=== PATIENT | male | born 1935 | race Caucasian/White ===

== ENCOUNTER 2018-03-20 10:09 | Inpatient (IN) | payer MEDICARE ==
[~2018-03-20] VITALS: Ht 172.7 cm; Wt 71.2 kg
[~2018-03-20 10:09] MED LIST: CALCCHW25 PO; DONE10TA14 PO; FE FCAP PO; FLEC100 PO; MELO15 PO; MEMA28CA PO; PRIL40CA PO
[2018-03-20 10:13] VITALS: BP 159/91; RESP 15; TEMP 98.2; O2SAT 98
[2018-03-20] MEDS ORDERED: ZYPR15TA PO (10:33)
[2018-03-20] MEDS ORDERED: MEMA28CA PO (10:33)
[2018-03-20] MEDS ORDERED: FLEC1TAB8 PO (10:33)
--- NOTE | 2018-03-20 10:39 | PD ---
HPI Chief Complaint: Fall Time Seen by Provider: 10:30 Travel History International Travel<30 days: No Contact w/Intl Traveler<30days: No Traveled to known affect area: No History of Present Illness HPI This patient complains of left hip pain. 2 hours ago he had a fall at home. He did not strike his head. He could not get up. He has dementia and history is provided by his . She reports that he is a DNR patient. He typically ambulates without assistive device. Symptoms are worsened by movement of the left leg. No alleviating factors. Symptom severity is moderate. PFSH Past Medical History Atrial Fibrillation: Yes Heart Rhythm Problems: Yes (ATRIL FLUTTER) Cancer: No Cardiovascular Problems: Yes (ATRIAL FIB) High Cholesterol: Yes Dementia: Yes Diabetes: No Diminished Hearing: Yes Endocrine: No Glaucoma: No Genitourinary: Yes (HX BPH) Hepatitis: No Hiatal Hernia: No Hypertension: No Immune Disorder: No Musculoskeletal: Yes (ARTHRITIS) Psychiatric: No Reproductive: No Respiratory: No Thyroid Disease: No Past Surgical History Abdominal Surgery: Yes (INGUINAL HERNIA REPAIR; 04/22 [facility]) Body Medical Devices: NONE Joint Replacement: Yes (left knee) Pacemaker: No Other Surgery: Yes Social History Alcohol Use: No (2 DRINKS PER DAY FORMER ) Tobacco Use: No Substance Use: No Allergies-Medications (Allergen,Severity, Reaction): Coded Allergies: ciprofloxacin (Unverified Allergy, Severe, RASH, 03/20/18) Reported Meds & Prescriptions Reported Meds & Active Scripts Active Reported Flecainide (Flecainide Acetate) 50 Mg Tab 10 Mg PO DAILY Zyprexa (Olanzapine) 15 Mg Tab 15 Mg PO DAILY Namenda Xr (Memantine) 28 Mg Caper 28 Mg PO DAILY Review of Systems General / Constitutional: No: Fever Eyes: No: Visual changes HENT: No: Headaches Cardiovascular: No: Chest Pain or Discomfort Respiratory: No: Shortness of Breath Gastrointestinal: No: Abdominal Pain Genitourinary: No: Dysuria Musculoskeletal: Positive: Arthralgias, Limited ROM, Pain Skin: No Rash Neurologic: No: Weakness Psychiatric: No: Depression Endocrine: No: Polydipsia Hematologic/Lymphatic: No: Easy Bruising Physical Exam Narrative GENERAL: Well-nourished, well-developed patient in no apparent distress. SKIN: Focused skin assessment reveals no rash and nodules. Skin is Warm and dry. HEAD: Atraumatic. Normocephalic. EYES: Pupils equal and round. No scleral icterus. No injection or drainage. ENT: No nasal bleeding or discharge. Mucous membranes pink and moist. NECK: Trachea midline. No JVD. No midline tenderness CARDIOVASCULAR: Regular rate and rhythm. No murmur appreciated. RESPIRATORY: No accessory muscle use. Clear to auscultation. Breath sounds equal bilaterally. GASTROINTESTINAL: Abdomen soft, non-tender, nondistended. Hepatic and splenic margins not palpable. MUSCULOSKELETAL: Left leg is shortened and externally rotated. Cannot straighten it fully. He is tender in the left proximal femur. No clubbing. No cyanosis. No edema. NEUROLOGICAL: Awake and alert. No obvious cranial nerve deficits. Motor grossly within normal limits. Normal speech. PSYCHIATRIC: Appropriate mood and affect; insight and judgment reduced from dementia . Data Data Last Documented VS Vital Signs Date Time Temp Pulse Resp B/P (MAP) Pulse Ox O2 Delivery O2 Flow Rate FiO2 03/20/18 14:04 70 18 126/91 (103) 98 Room Air 03/20/18 10:13 98.2 Orders Orders Electrocardiogram (03/20/18 10:35) Complete Blood Count With Diff (03/20/18 10:35) Comprehensive Metabolic Panel (03/20/18 10:35) Prothrombin Time / Inr (Pt) (03/20/18 10:35) Act Partial Throm Time (Ptt) (03/20/18 10:35) Chest, Single Ap (03/20/18 10:35) Femur (Ap & Lat/2vws) (03/20/18 10:35) Pelvis, Ap Only (Routine) (03/20/18 10:35) Iv Access Insert/Monitor (03/20/18 10:35) Oximetry (03/20/18 10:35) Ecg Monitoring (03/20/18 10:35) Sodium Chloride 0.9% Flush (Ns Flush) (03/20/18 10:45) Admit To Inpatient (03/20/18 13:51) Code Status (03/20/18 13:51) Vital Signs (Adult) Q4H (03/20/18 13:51) Activity Bed Rest (03/20/18 13:51) Diet Heart Healthy (03/20/18 Lunch) Basic Metabolic Panel (Bmp) (03/21/18 06:00) Complete Blood Count With Diff (03/21/18 06:00) Scd Bilateral/Knee High MAT.QSHIFT (03/20/18 13:51) Sodium Chlor 0.9% 1000 Ml Inj (Ns 1000 M (03/20/18 15:00) Ceftriaxone Inj (Rocephin Inj) (03/20/18 15:00) Azithromycin Inj (Zithromax Inj) (03/20/18 15:00) Azithromycin Inj (Zithromax Inj) (03/21/18 15:00) Albuterol-Ipratropium Neb (Duoneb Neb) (03/20/18 14:15) Flecainide (Tambocor) (03/21/18 09:00) Olanzapine (Zyprexa) (03/21/18 09:00) (Nf) Memantine Er (Namenda Xr) (03/21/18 09:00) Troponin I (03/20/18 14:12) Npo After Midnight W/ Po Meds (03/20/18 Dinner) Consult Orthopedic (03/20/18 ) Acetaminophen (Tylenol) (03/20/18 14:15) Acetamin-Hydrocod 325-5 Mg (Tumtum 5-325 (03/20/18 14:15) Acetamin-Hydrocod 325-10 Mg (Tumtum 10-32 (03/20/18 14:15) Morphine Inj (Morphine Inj) (03/20/18 14:15) Naloxone Inj (Narcan Inj) (03/20/18 14:15) Docusate Sodium-Senna (Gayla-Colace) (03/20/18 21:00) Magnesium Hydroxide Liq (Milk Of Magnesi (03/20/18 14:15) Sennosides (Senokot) (03/20/18 14:15) Bisacodyl Supp (Dulcolax Supp) (03/20/18 14:15) Lactulose Liq (Lactulose Liq) (03/20/18 14:15) Labs Laboratory Tests Test 03/20/18 11:20 White Blood Count 13.4 TH/MM3 Red Blood Count 4.75 MIL/MM3 Hemoglobin 15.2 GM/DL Hematocrit 45.3 % Mean Corpuscular Volume 95.4 FL Mean Corpuscular Hemoglobin 32.0 PG Mean Corpuscular Hemoglobin Concent 33.6 % Red Cell Distribution Width 14.9 % Platelet Count 294 TH/MM3 Mean Platelet Volume 8.7 FL Neutrophils (%) (Auto) 83.0 % Lymphocytes (%) (Auto) 6.5 % Monocytes (%) (Auto) 10.3 % Eosinophils (%) (Auto) 0.0 % Basophils (%) (Auto) 0.2 % Neutrophils # (Auto) 11.1 TH/MM3 Lymphocytes # (Auto) 0.9 TH/MM3 Monocytes # (Auto) 1.4 TH/MM3 Eosinophils # (Auto) 0.0 TH/MM3 Basophils # (Auto) 0.0 TH/MM3 CBC Comment DIFF FINAL Differential Comment Prothrombin Time 11.4 SEC Prothromb Time International Ratio 1.1 RATIO Activated Partial Thromboplast Time 27.9 SEC Blood Urea Nitrogen 28 MG/DL Creatinine 1.51 MG/DL Random Glucose 113 MG/DL Total Protein 7.1 GM/DL Albumin 3.5 GM/DL Calcium Level 8.7 MG/DL Alkaline Phosphatase 115 U/L Aspartate Amino Transf (AST/SGOT) 38 U/L Alanine Aminotransferase (ALT/SGPT) 25 U/L Total Bilirubin 1.6 MG/DL Sodium Level 138 MEQ/L Potassium Level 4.8 MEQ/L Chloride Level 108 MEQ/L Carbon Dioxide Level 18.9 MEQ/L Anion Gap 11 MEQ/L Estimat Glomerular Filtration Rate 45 ML/MIN MDM Medical Decision Making Medical Screen Exam Complete: Yes Emergency Medical Condition: Yes Medical Record Reviewed: Yes Differential Diagnosis Hip fracture, pelvic fracture, contusion Narrative Course I have reviewed the patient's electronic medical record. I presume from examining him he has a left hip fracture. I have ordered a workup for that. IV placed and labs sent I reviewed his femur and pelvis x-rays which reveal a left-sided femoral neck fracture Lab studies reviewed Patient's confirms that he is a DNR patient However he typically ambulates without assistive device and now has a fractured hip I spoke with orthopedist as well as hospitalist. Patient will be admitted for left hip fracture Diagnosis Primary Impression: Fracture of hip, left, closed Qualified Codes: S72.002A - Fracture of unspecified part of neck of left femur , initial encounter for closed fracture Additional Impressions: Dementia Qualified Codes: F03.90 - Unspecified dementia without behavioral disturbance Do not resuscitate Admitting Information Admitting Physician Requests: it Davion Kate MD Mar 20, 2018 10:39
[2018-03-20] MEDS ORDERED: SODIUM CHLORIDE 0.9% FLUSH 10 ML FLUSH IVF PRN (10:45)
[2018-03-20 11:26] VITALS: BP 157/82; PULSE 100; RESP 20; O2SAT 100; O2SAT 98
[2018-03-20 11:48] LABS: AUTOMATED NEUTROPHIL # 11.1 TH/MM3 (1.8-7.7); BASOPHIL % 0.2 % (0.0-2.0); HEMATOCRIT 45.3 % (39.0-51.0); HEMOGLOBIN 15.2 GM/DL (13.0-17.0); LYMPH % 6.5 % (9.0-44.0); LYMPHOCYTE # 0.9 TH/MM3 (1.0-4.8); MEAN CELL VOLUME 95.4 FL (80.0-100.0); MEAN CORPUSCULAR HGB CONC 33.6 % (32.0-36.0); MEAN PLATELET VOLUME 8.7 FL (7.0-11.0); MONO % 10.3 % (0.0-8.0); MONOCYTE # 1.4 TH/MM3 (0-0.9); PLATELET COUNT 294 TH/MM3 (150-450); RED BLOOD COUNT 4.75 MIL/MM3 (4.50-5.90); RED CELL DISTRIBUTION WIDTH 14.9 % (11.6-17.2); WHITE BLOOD COUNT 13.4 TH/MM3 (4.0-11.0)
--- NOTE | 2018-03-20 12:01 | RADRPT ---
EXAM DATE: 03/20/2018 11:39 AM EDT AGE/SEX: 82 years / Male INDICATIONS: pt fell today. CLINICAL DATA: This is the patient's initial encounter. Patient reports that signs and symptoms have been present for 1 day and indicates a pain score of Nonresponsive. MEDICAL/SURGICAL HISTORY: . dementia . left knee replacement COMPARISON: [facility] [place], FEMUR LEFT (AP & LAT/2VWS), 03/20/2018. . FINDINGS there is a complete mid cervical femoral neck fracture on the left discussed on the patient' s left femur radiographs. There is osteopenia. CONCLUSION: Complete mid cervical left femoral neck fracture. Electronically signed by: Nnamdi Monterroso MD 03/20/2018 11:59 AM EDT
[2018-03-20 12:02] LABS: INTERNATIONAL NORMALIZED RATIO 1.1 RATIO; PROTHROMBIN TIME - PATIENT 11.4 SEC (9.8-11.6)
--- NOTE | 2018-03-20 12:02 | RADRPT ---
EXAM DATE: 03/20/2018 11:37 AM EDT AGE/SEX: 82 years / Male INDICATIONS: Pt fell today CLINICAL DATA: This is the patient's initial encounter. Patient reports that signs and symptoms have been present for 1 day and indicates a pain score of Nonresponsive. MEDICAL/SURGICAL HISTORY: . dementia . left knee replacement COMPARISON: No prior exams available for comparison. FINDINGS: There is a complete mid cervical left femoral neck fracture. CONCLUSION: Complete left femoral neck fracture. Electronically signed by: Nnamdi Monterroso MD 03/20/2018 12:00 PM EDT
--- NOTE | 2018-03-20 12:04 | RADRPT ---
EXAM DATE: 03/20/2018 11:25 AM EDT AGE/SEX: 82 years / Male INDICATIONS: Patient fell today. CLINICAL DATA: This is the patient's initial encounter. Patient reports that signs and symptoms have been present for 1 day and indicates a pain score of Nonresponsive. MEDICAL/SURGICAL HISTORY: . dementia . left knee replacement. COMPARISON: No prior exams available for comparison. FINDINGS: AP view of the chest demonstrates a normal-sized cardiac silhouette with calcification of the aorta. EKG lines overlie the patient. There is slight hazy opacity at the left lung base. No pleural effusio n or pneumothorax is identified. The bones and soft tissues demonstrate no acute abnormality. There i s abnormal elevation of the right humeral head in relationship to the acromion. CONCLUSION: 1. Mild opacity at the left lung base could represent atelectasis or consolidation. 2. No acute osseous abnormality is identified. 3. Abnormal elevation of the right humeral head indicating a chronic rotator cuff tear. Electronically signed by: Steve Vega MD 03/20/2018 12:02 PM EDT
[2018-03-20 12:17] LABS: ALKALINE PHOSPHATASE 115 U/L (45-117); TOTAL BILIRUBIN ADULT 1.6 MG/DL (0.2-1.0); TOTAL PROTEIN 7.1 GM/DL (6.4-8.2)
[2018-03-20 12:19] LABS: ALBUMIN 3.5 GM/DL (3.4-5.0); ALT (GPT) 25 U/L (12-78); AST (GOT) 38 U/L (15-37); BICARBONATE 18.9 MEQ/L (21.0-32.0); BLOOD UREA NITROGEN 28 MG/DL (7-18); CALCIUM 8.7 MG/DL (8.5-10.1); CHLORIDE 108 MEQ/L (98-107); CREATININE 1.51 MG/DL (0.60-1.30); GLOMERULAR FILTRATION RATE 45 ML/MIN (>89); GLUCOSE,RANDOM 113 MG/DL (74-106); SODIUM (NA) 138 MEQ/L (136-145)
[2018-03-20 13:05] VITALS: BP 106/59; PULSE 70; RESP 18; O2SAT 98
--- NOTE | 2018-03-20 13:52 | HHI.HP ---
[facility] Primary Care Physician Carlos Parker, DO Admission Diagnosis Diagnoses: Chief Complaint: Fall, left hip pain Travel History International Travel<30 Days: No Contact w/Intl Traveler <30 Da: No Traveled to Known Affected Are: No History of Present Illness This is an 82-year-old male with history of atrial fibrillation and dementia presenting with left hip pain after a fall. Patient is a very poor historian. According to the , the patient was walking, tripped and fell. He did not hit his head but hit his left side of the body. Since then, he was unable to ambulate and complaining of pain in the left hip. Left hip x-ray showed left humeral neck fracture. Per , she is not sure if she would want him to get surgery. She also mentioned that the patient is DNR/DNI. Review of Systems ROS Limitations: Poor Historian Past Family Social History Past Medical History Dementia Atrial fibrillation Arthritis BPH Past Surgical History Inguinal hernia repair Left knee replacement Cholecystectomy Allergies: Coded Allergies: ciprofloxacin (Unverified Allergy, Severe, RASH, 03/20/18) Family History Poor historian Social History 2 drinks per day Former smoker Physical Exam Vital Signs Vital Signs Date Time Temp Pulse Resp B/P (MAP) Pulse Ox O2 Delivery O2 Flow Rate FiO2 03/20/18 13:05 70 18 106/59 (75) 98 Room Air 03/20/18 11:26 20 100 Room Air 03/20/18 11:26 100 20 157/82 (107) 98 Room Air 03/20/18 10:13 98.2 15 159/91 (113) 98 03/20/18 10:13 107 16 97 Room Air Physical Exam Not in distress, confused. PERRL, pink conjunctiva without injection, anicteric Nose without bleeding Supple neck Normal rate, irregular rhythm, no murmurs appreciated Clear to auscultation, poor effort. Normal bowel sounds, soft, non-tender, nondistended, no guarding. Extremities without clubbing, cyanosis, or edema. Externally rotated left hip. Alert and awake, not oriented, moves extremities. Laboratory Laboratory Tests Test 03/20/18 11:20 White Blood Count 13.4 Red Blood Count 4.75 Hemoglobin 15.2 Hematocrit 45.3 Mean Corpuscular Volume 95.4 Mean Corpuscular Hemoglobin 32.0 Mean Corpuscular Hemoglobin Concent 33.6 Red Cell Distribution Width 14.9 Platelet Count 294 Mean Platelet Volume 8.7 Neutrophils (%) (Auto) 83.0 Lymphocytes (%) (Auto) 6.5 Monocytes (%) (Auto) 10.3 Eosinophils (%) (Auto) 0.0 Basophils (%) (Auto) 0.2 Neutrophils # (Auto) 11.1 Lymphocytes # (Auto) 0.9 Monocytes # (Auto) 1.4 Eosinophils # (Auto) 0.0 Basophils # (Auto) 0.0 CBC Comment DIFF FINAL Differential Comment Prothrombin Time 11.4 Prothromb Time International Ratio 1.1 Activated Partial Thromboplast Time 27.9 Blood Urea Nitrogen 28 Creatinine 1.51 Random Glucose 113 Total Protein 7.1 Albumin 3.5 Calcium Level 8.7 Alkaline Phosphatase 115 Aspartate Amino Transf (AST/SGOT) 38 Alanine Aminotransferase (ALT/SGPT) 25 Total Bilirubin 1.6 Sodium Level 138 Potassium Level 4.8 Chloride Level 108 Carbon Dioxide Level 18.9 Anion Gap 11 Estimat Glomerular Filtration Rate 45 Result Diagram: 03/20/18 1120 03/20/18 1120 Imaging Last Impressions Pelvis X-Ray 03/20/18 1035 Signed Impressions: CONCLUSION: Complete mid cervical left femoral neck fracture. Femur X-Ray 03/20/18 1035 Signed Impressions: CONCLUSION: Complete left femoral neck fracture. Chest X-Ray 03/20/18 1035 Signed Impressions: CONCLUSION: 1. Mild opacity at the left lung base could represent atelectasis or consolida tion. 2. No acute osseous abnormality is identified. 3. 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 Caprini VTE Risk Assessment Caprini VTE Risk Assessment: Mod/High Risk (score >= 2) VTE Pharm Contraindication: Documented Caprini Risk Assessment Model Point Value = 1 Point Value = 2 Point Value = 3 Point Value = 5 Age 41-60 Minor surgery BMI > 25 kg/m2 Swollen legs Varicose veins or History of unexplained or recurrent spontaneous Oral contraceptives or hormone replacement Sepsis (< 1 month) Serious lung disease, including pneumonia (< 1 month) Abnormal pulmonary function Acute myocardial infarction Congestive heart failure (< 1 month) History of inflammatory bowel disease Medical patient at bed rest Age 61-74 Arthroscopic surgery Major open surgery (> 45 min) Laparoscopic surgery (> 45 min) Malignancy Confined to bed (> 72 hours) Immobilizing plaster cast Central venous access Age >= 75 History of VTE Family history of VTE Factor V Leiden Prothrombin [id number] Lupus anticoagulant Anticardiolipin antibodies Elevated serum homocysteine Heparin-induced thrombocytopenia Other congenital or acquired thrombophilia Stroke (< 1 month) Elective arthroplasty Hip, pelvis, or leg fracture Acute spinal cord injury (< 1 month) Prophylaxis Regimen Total Risk Factor Score Risk Level Prophylaxis Regimen 0-1 Low Early ambulation 2 Moderate Order ONE of the following: *Sequential Compression Device (SCD) *Heparin 5000 units SQ BID 3-4 Higher Order ONE of the following medications: *Heparin 5000 units SQ TID *Enoxaparin/Lovenox 40 mg SQ daily (WT < 150 kg, CrCl > 30 mL/min) *Enoxaparin/Lovenox 30 mg SQ daily (WT < 150 kg, CrCl > 10-29 mL/min) *Enoxaparin/Lovenox 30 mg SQ BID (WT < 150 kg, CrCl > 30 mL/min) AND/OR *Sequential Compression Device (SCD) 5 or more Highest Order ONE of the following medications: *Heparin 5000 units SQ TID (Preferred with Epidurals) *Enoxaparin/Lovenox 40 mg SQ daily (WT < 150 kg, CrCl > 30 mL/min) *Enoxaparin/Lovenox 30 mg SQ daily (WT < 150 kg, CrCl > 10-29 mL/min) *Enoxaparin/Lovenox 30 mg SQ BID (WT < 150 kg, CrCl > 30 mL/min) AND *Sequential Compression Device (SCD) Assessment and Plan Assessment and Plan This is an 82-year-old male with history of atrial fibrillation and dementia presenting with a left hip fracture Left femoral neck fracture-patient's is thinking if she would like to consent to surgery, consult orthopedics for surgery, n.p.o. at midnight. Start pain control with bowel regimen Atrial fibrillation-restart flecainide, EKG showed atrial fibrillation, rate controlled. Check troponin, if negative, would likely clear for surgery. Dementia-restart Zyprexa Namenda Rule out community-acquired pneumonia-patient has leukocytosis and beginning opacity in the left lung base, start ceftriaxone and azithromycin for now. Monitor respiratory status. Dehydration-start IVF, creatinine is 1.51. It was normal in 2016, recheck BMP tomorrow. DVT prophylaxis: SCDs for now, start pharmacological prophylaxis after surgery DNR/DNI per . Physician Certification 2 Midnight Certification Type: Admission for Inpatient Services Order for Inpatient Services The services are ordered in accordance with Medicare regulations or non- Medicare payer requirements, as applicable. In the case of services not specified as inpatient-only, they are appropriately provided as inpatient services in accordance with the 2-midnight benchmark. Estimated LOS (days): 2 days is the estimated time the patient will need to remain in the hospital, assuming treatment plan goals are met and no additional complications. Post-Hospital Plan: [facility] Reji Coates MD Mar 20, 2018 13:52
[2018-03-20 14:04] VITALS: BP 126/91; PULSE 70; RESP 18; O2SAT 98
[2018-03-20] MEDS ORDERED: ACETAMINOPHEN 325 MG TAB PO PRN (14:15)
[2018-03-20] MEDS ORDERED: RESP: ALBUTEROL 2.5 MG/IPRATROPIUM 0.5 MG NEB (PRN) NEB (14:15)
[2018-03-20] MEDS ORDERED: NALOXONE HCL 0.4 MG/ML AMP IV PUSH PRN (14:15)
[2018-03-20] MEDS ORDERED: SENNOSIDES 8.6 MG TAB PO PRN (14:15)
[2018-03-20] MEDS ORDERED: BISACODYL 10 MG SUPP RECTAL PRN (14:15)
[2018-03-20] MEDS ORDERED: MAGNESIUM HYDROXIDE SUSP 30 ML CUP PO PRN (14:15)
[2018-03-20] MEDS ORDERED: MORPHINE SULFATE 2 MG/ML SYRINGE IV PUSH PRN (14:15)
[2018-03-20] MEDS ORDERED: ACETAMINOPHEN/HYDROcodone 325 MG/5 MG TAB PO PRN (14:15)
[2018-03-20] MEDS ORDERED: LACTULOSE SYRUP 20 GM/30 ML CUP PO PRN (14:15)
[2018-03-20] MEDS ORDERED: AZITHROMYCIN INJ 500 MG in SODIUM CHLOR 0.9% 250 ML INJ 250 ML IV ONE (15:00)
[2018-03-20 15:25] VITALS: BP 130/88; PULSE 92; RESP 18; O2SAT 98
[2018-03-20] MEDS: SODIUM CHLOR 0.9% 1000 ML INJ 1,000 ML IV SCH (15:28)
[2018-03-20] MEDS: cefTRIAXone INJ 1,000 MG in SODIUM CHLORIDE 0.9% INJ 100 ML IV SCH (15:29)
[2018-03-20] MEDS: DOCUSATE SODIUM 50 MG/SENNA 8.6 MG TAB PO SCH (19:29)
[2018-03-20] MEDS: MEMANTINE HCL 10 MG TAB PO SCH (19:30)
[2018-03-20] MEDS: ACETAMINOPHEN/HYDROcodone 325 MG/10 MG TAB PO PRN (19:30)
[2018-03-20 20:00] VITALS: BP 114/71; PULSE 82; RESP 16; TEMP 97.5; O2SAT 94
[2018-03-21] VITALS: BP 151/88; PULSE 118; RESP 18; TEMP 97.5; O2SAT 96
[2018-03-21] MEDS: ACETAMINOPHEN/HYDROcodone 325 MG/10 MG TAB PO PRN (00:23)
[2018-03-21] MEDS ORDERED: LORazepam 2 MG/ML VIAL IV PUSH ONE (01:00)
[2018-03-21] MEDS ORDERED: SODIUM CHLORID 0.9% 500 ML IV PRN (02:00)
[2018-03-21] MEDS ORDERED: METOPROLOL TARTRATE 25 MG TAB PO PRN (02:00)
[2018-03-21] MEDS ORDERED: POVIDONE IODINE 5% (ANTISEPSIS KIT) 4 APPLICATIONS EACH NARE PRN (02:00)
[2018-03-21] MEDS ORDERED: LACTATED RINGER'S 1000 ML IV PRN (02:00)
[2018-03-21] MEDS ORDERED: CHLORHEXIDINE GLUCONATE 2 % 1 PACK (2 CLOTHS) TOPICAL PRN (02:00)
[2018-03-21] MEDS: SODIUM CHLOR 0.9% 1000 ML INJ 1,000 ML IV SCH ×2 (02:55→14:29)
[2018-03-21 04:00] VITALS: BP 116/74; PULSE 95; RESP 18; TEMP 97.9; O2SAT 96
[2018-03-21 08:00] VITALS: BP 108/84; PULSE 101; RESP 19; TEMP 97.3; O2SAT 96
[2018-03-21 08:00] LABS: AUTOMATED NEUTROPHIL # 8.1 TH/MM3 (1.8-7.7); BASOPHIL % 0.4 % (0.0-2.0); EOSINOPHIL # 0.1 TH/MM3 (0-0.4); EOSINOPHIL % 0.7 % (0.0-4.0); HEMATOCRIT 43.2 % (39.0-51.0); HEMOGLOBIN 14.4 GM/DL (13.0-17.0); LYMPH % 11.2 % (9.0-44.0); LYMPHOCYTE # 1.2 TH/MM3 (1.0-4.8); MEAN CELL VOLUME 95.5 FL (80.0-100.0); MEAN CORPUSCULAR HEMOGLOBIN 31.9 PG (27.0-34.0); MEAN CORPUSCULAR HGB CONC 33.4 % (32.0-36.0); MEAN PLATELET VOLUME 8.8 FL (7.0-11.0); MONO % 12.1 % (0.0-8.0); MONOCYTE # 1.3 TH/MM3 (0-0.9); NEUT % 75.6 % (16.0-70.0); PLATELET COUNT 268 TH/MM3 (150-450); RED BLOOD COUNT 4.52 MIL/MM3 (4.50-5.90); RED CELL DISTRIBUTION WIDTH 14.7 % (11.6-17.2); WHITE BLOOD COUNT 10.7 TH/MM3 (4.0-11.0)
[2018-03-21] MEDS: MEMANTINE HCL 10 MG TAB PO SCH ×2 (08:10→20:04)
[2018-03-21] MEDS: DOCUSATE SODIUM 50 MG/SENNA 8.6 MG TAB PO SCH ×2 (08:10→20:05)
[2018-03-21 08:16] LABS: BICARBONATE 20.5 MEQ/L (21.0-32.0); CALCIUM 8.4 MG/DL (8.5-10.1); CREATININE 1.25 MG/DL (0.60-1.30)
[2018-03-21] MEDS ORDERED: FLECAINIDE ACETATE 100 MG TAB PO SCH (09:00)
[2018-03-21] MEDS ORDERED: NON-FORMULARY DRUG (Memantine Er (Namenda Xr) 28 MG) PO SCH (09:00)
[2018-03-21 12:00] VITALS: BP 158/88; PULSE 104; RESP 20; TEMP 97.5; O2SAT 96
--- NOTE | 2018-03-21 13:51 | PD.CONS ---
Consult Service Palliative Care Consult Requested By DORIAN Garcia. Primary Care Physician Carlos Parker, DO Reason for Consultation a. To assist with evaluation and management of symptoms including: Pain, debility. b. To assist medical decision maker(s) with: better understanding of current medical conditions; weighing benefits/burdens of medical treatment options; making medical treatment decisions. . HPI History of Present Illness Mr. Ba is an 82-year-old male with a medical history significant for dementia, atrial fibrillation, osteoarthritis and BPH. Patient presented to the ED on 03/20/18 for evaluation of left leg pain secondary to mechanical fall at home. Pelvis and femur x-ray revealed complete mid cervical left femoral neck fracture. Chest x-ray revealed mild opacity of the left lung base which could represent atelectasis or consolidation. Laboratory workup revealing WBC 13.4, Hgb 15.2. BUN/creatinine 28/1.51. Patient was admitted for further monitoring and management. Orthopedic surgeon was consulted, however, was reported to be unsure regarding surgical interventions given patient's dementia. Politic care has been consulted for further clarifications of goals of care. Patient was seen in medical floor, sleeping in bed in no acute distress. Did not awake during physical assessment, appears comfortable. Dual visit with MARION Florentino. Met with patient's Zoey and daughter Tara. In this first visit, reviewed the role of palliative care in advanced illness in regards to symptom management as well as support surrounding goals of care and advance care planning. and daughter receptive to visit. Reviewed patient's past medical history, psychosocial history, events leading to this hospitalization, clinical course and current medical management. Family reports that patient was originally diagnosed with dementia approximately 17 years ago. Showing some progressive decline, worsening within the past year. Patient with shuffle gait, frequent falls. Neurology following , likely Lewy body dementia. Family reports that patient has been having a poor quality of life within the past year secondary to worsening dementia. Limited speech, needs are anticipated. Family declining surgical intervention. Hospice philosophy and benefits introduced. Family electing to transition patient to comfort directed care with hospice, considering discharge to hospice care center for pain/symptom management. Ongoing emotional support and active listening provided. Case discussed with bedside nurse and charge nurse. . Function/Cognitive Trajectory Patient residing in private home with . Dementia at baseline. Ambulating without assistive device, however, shuffled gait with multiple recent falls. Limited speech, needs are anticipated. . Review of Systems ROS Limitations: Clinical Condition, Poor Historian Constitutional: COMPLAINS OF: Pain, DENIES: Fatigue, Fever Eyes: DENIES: Eye inflammation Ears, nose, mouth, throat: DENIES: Running Nose, Epistaxis Respiratory: DENIES: Shortness of breath Cardiovascular: DENIES: Lower Extremity Edema Gastrointestinal: DENIES: Black stools, Bloody stools, Diarrhea Musculoskeletal: COMPLAINS OF: Decreased range of motion Integumentary: DENIES: Pruritus, Rash Hematologic/Lymphatics: DENIES: Bruising Immunologic/Allergic: DENIES: Eczema Neurologic: DENIES: Seizures, Tremor Psychiatric: COMPLAINS OF: Confusion Other ROS: Limited ROS secondary to patient's baseline dementia, clinical condition. ROS obtained from medical records and clinical observation. . Past Family Social History Coded Allergies: ciprofloxacin (Unverified Allergy, Severe, RASH, 03/20/18) Past Medical History Dementia Atrial fibrillation Arthritis BPH . Past Surgical History Inguinal hernia repair Left knee replacement Cholecystectomy . Reported Medications Flecainide (Flecainide Acetate) 50 Mg Tab 10 Mg PO DAILY Zyprexa (Olanzapine) 15 Mg Tab 15 Mg PO DAILY Namenda Xr (Memantine) 28 Mg Caper 28 Mg PO DAILY . Current Medications Medications (Trade) Dose Ordered Sig/Waldemar Route Start Time Stop Time Status Last Admin (NS Flush) 2 ml UNSCH PRN IVF 03/20/18 10:45 Sodium Chloride 1,000 ml @ 84 mls/hr [id number] IV 03/20/18 15:00 03/20/18 15:28 Ceftriaxone Sodium 1000 mg/ Sodium Chloride 100 ml @ 200 mls/hr Q24H IV 03/20/18 15:00 03/20/18 15:29 Azithromycin 250 mg/Sodium Chloride 250 ml @ 250 mls/hr Q24H IV 03/21/18 15:00 (Duoneb Neb) 1 ampule Q4HR NEB PRN NEB 03/20/18 14:15 (Tambocor) 10 mg DAILY PO 03/21/18 09:00 UNV (ZyPREXA) 15 mg DAILY PO 03/21/18 09:00 03/21/18 08:10 (Tylenol) 650 mg Q6H PRN PO 03/20/18 14:15 (Leeds 5-325 Mg) 1 tab Q4H PRN PO 03/20/18 14:15 (Leeds 10-325 Mg) 1 tab Q4H PRN PO 03/20/18 14:15 03/21/18 00:23 (Morphine Inj) 4 mg Q3H PRN IV PUSH 03/20/18 14:15 (Narcan Inj) 0.4 mg UNSCH PRN IV PUSH 03/20/18 14:15 (Gayla-Colace) 1 tab BID PO 03/20/18 21:00 03/21/18 08:10 (Milk Of Magnesia Liq) 30 ml Q12H PRN PO 03/20/18 14:15 (Senokot) 17.2 mg Q12H PRN PO 03/20/18 14:15 (Dulcolax Supp) 10 mg DAILY PRN RECTAL 03/20/18 14:15 (Lactulose Liq) 30 ml DAILY PRN PO 03/20/18 14:15 (Namenda) 10 mg BID PO 03/20/18 21:00 03/21/18 08:10 Lactated Ringer's 1,000 ml @ 30 mls/hr Q24H PRN IV 03/21/18 02:00 03/24/18 01:59 Sodium Chloride 500 ml @ 30 mls/hr [id number] PRN IV 03/21/18 02:00 03/24/18 01:59 (Lopressor) 25 mg DEPARTMENT SECRETARY PRN PO 03/21/18 02:00 03/24/18 01:59 (Betadine 5% Antisepsis Kit) 1 applic DEPARTMENT SECRETARY PRN EACH NARE 03/21/18 02:00 03/24/18 01:59 (Chlorhexidine 2% Cloth) 3 pack DEPARTMENT SECRETARY PRN TOPICAL 03/21/18 02:00 03/24/18 01:59 Family History Patient has 1 daughter who is alive and well. . Substance Use Tobacco: Former smoker. Alcohol: None. Prescription med abuse: None. Illicits: None. . Psychosocial History Patient originally from [facility]. Has been in [place] for 18 years. for the past 62 years. 4 children. 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 . Spiritual/Cultural Factors No caodaism affiliation. . Living Will: Completed, but not made available Health Care Surrogate: Completed, but not made available Health Care Surrogate(s): Family reports that advance directives have been completed naming Zoey Ba as healthcare surrogate decision maker. . Family/friends goals: Comfort directed care with hospice. . Ethical and Legal Issues No ethical legal issues identified. . Physical Exam Vital Signs Date Time Temp Pulse Resp B/P (MAP) Pulse Ox O2 Delivery O2 Flow Rate FiO2 03/21/18 08:00 97.3 101 19 108/84 (92) 96 03/21/18 04:00 97.9 95 18 116/74 (88) 96 03/21/18 00:00 97.5 118 18 151/88 (109) 96 03/20/18 20:00 97.5 82 16 114/71 (85) 94 03/20/18 16:30 03/20/18 15:25 92 18 130/88 (102) 98 Room Air 03/20/18 14:04 70 18 126/91 (103) 98 Room Air Exam CONSTITUTIONAL/GENERAL: This is an adequately nourished patient, in no apparent distress. Sleeping. TUBES/LINES/DRAINS: PIV. SKIN: No jaundice, rashes, or lesions. No wounds seen anteriorly. Skin temperature appropriate. Not diaphoretic. HEAD: Atraumatic. Normocephalic. EYES: Eyes closed, did not force open for exam. ENT: Nose without bleeding or purulent drainage. Moist oral mucosa. NECK: Trachea midline. Supple. CARDIOVASCULAR: Irregular rate and rhythm without murmurs, gallops, or rubs. No JVD. Peripheral pulses symmetric. RESPIRATORY/CHEST: Symmetric, unlabored respirations. Clear to auscultation. Breath sounds equal bilaterally. No wheezes, rales, or rhonchi. GASTROINTESTINAL: Abdomen soft, non-tender, nondistended. No guarding. Bowel sounds present. GENITOURINARY: Without palpable bladder distension. MUSCULOSKELETAL: Extremities without clubbing, cyanosis, or edema. NEUROLOGICAL: Sleeping, did not awake for exam. PSYCHIATRIC: Unable to evaluate given the above. . Diagnostic Tests Laboratory Laboratory Tests Test 03/20/18 11:20 03/20/18 14:53 03/21/18 06:39 White Blood Count 13.4 TH/MM3 (4.0-11.0) 10.7 TH/MM3 (4.0-11.0) Red Blood Count 4.75 MIL/MM3 (4.50-5.90) 4.52 MIL/MM3 (4.50-5.90) Hemoglobin 15.2 GM/DL (13.0-17.0) 14.4 GM/DL (13.0-17.0) Hematocrit 45.3 % (39.0-51.0) 43.2 % (39.0-51.0) Mean Corpuscular Volume 95.4 FL (80.0-100.0) 95.5 FL (80.0-100.0) Mean Corpuscular Hemoglobin 32.0 PG (27.0-34.0) 31.9 PG (27.0-34.0) Mean Corpuscular Hemoglobin Concent 33.6 % (32.0-36.0) 33.4 % (32.0-36.0) Red Cell Distribution Width 14.9 % (11.6-17.2) 14.7 % (11.6-17.2) Platelet Count 294 TH/MM3 (150-450) 268 TH/MM3 (150-450) Mean Platelet Volume 8.7 FL (7.0-11.0) 8.8 FL (7.0-11.0) Neutrophils (%) (Auto) 83.0 % (16.0-70.0) 75.6 % (16.0-70.0) Lymphocytes (%) (Auto) 6.5 % (9.0-44.0) 11.2 % (9.0-44.0) Monocytes (%) (Auto) 10.3 % (0.0-8.0) 12.1 % (0.0-8.0) Eosinophils (%) (Auto) 0.0 % (0.0-4.0) 0.7 % (0.0-4.0) Basophils (%) (Auto) 0.2 % (0.0-2.0) 0.4 % (0.0-2.0) Neutrophils # (Auto) 11.1 TH/MM3 (1.8-7.7) 8.1 TH/MM3 (1.8-7.7) Lymphocytes # (Auto) 0.9 TH/MM3 (1.0-4.8) 1.2 TH/MM3 (1.0-4.8) Monocytes # (Auto) 1.4 TH/MM3 (0-0.9) 1.3 TH/MM3 (0-0.9) Eosinophils # (Auto) 0.0 TH/MM3 (0-0.4) 0.1 TH/MM3 (0-0.4) Basophils # (Auto) 0.0 TH/MM3 (0-0.2) 0.0 TH/MM3 (0-0.2) CBC Comment DIFF FINAL DIFF FINAL Differential Comment Prothrombin Time 11.4 SEC (9.8-11.6) Prothromb Time International Ratio 1.1 RATIO Activated Partial Thromboplast Time 27.9 SEC (24.3-30.1) Blood Urea Nitrogen 28 MG/DL (7-18) 23 MG/DL (7-18) Creatinine 1.51 MG/DL (0.60-1.30) 1.25 MG/DL (0.60-1.30) Random Glucose 113 MG/DL (74-106) 91 MG/DL (74-106) Total Protein 7.1 GM/DL (6.4-8.2) Albumin 3.5 GM/DL (3.4-5.0) Calcium Level 8.7 MG/DL (8.5-10.1) 8.4 MG/DL (8.5-10.1) Alkaline Phosphatase 115 U/L (45-117) Aspartate Amino Transf (AST/SGOT) 38 U/L (15-37) Alanine Aminotransferase (ALT/SGPT) 25 U/L (12-78) Total Bilirubin 1.6 MG/DL (0.2-1.0) Sodium Level 138 MEQ/L (136-145) 138 MEQ/L (136-145) Potassium Level 4.8 MEQ/L (3.5-5.1) 3.9 MEQ/L (3.5-5.1) Chloride Level 108 MEQ/L (98-107) 108 MEQ/L (98-107) Carbon Dioxide Level 18.9 MEQ/L (21.0-32.0) 20.5 MEQ/L (21.0-32.0) Anion Gap 11 MEQ/L (5-15) 10 MEQ/L (5-15) Estimat Glomerular Filtration Rate 45 ML/MIN (>89) 55 ML/MIN (>89) Troponin I LESS THAN 0.02 NG/ML Result Diagram: 03/21/18 0639 03/21/18 0639 Imaging Last Impressions Pelvis X-Ray 03/20/18 1035 Signed Impressions: CONCLUSION: Complete mid cervical left femoral neck fracture. Femur X-Ray 03/20/18 1035 Signed Impressions: CONCLUSION: Complete left femoral neck fracture. Chest X-Ray 03/20/18 1035 Signed Impressions: CONCLUSION: 1. Mild opacity at the left lung base could represent atelectasis or consolida tion. 2. No acute osseous abnormality is identified. 3. 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 Patient/Family Conference Present at Family Conference: Zoey and daughter Tara. Family Conference Time (mins): 26 Family Conference Location: [facility] Issues Discussed: * Palliative care role, purpose, approach * Additional medical, psychosocial, and spiritual history * Patients general health, functional status, and cognitive changes in the months leading up to the current hospitalization * Patient/family understanding of the current medical problems * Patient/family understanding of prognosis * Patients goals of care as best understood from advance directives and/or conversations and/or values * Current medical treatment options and benefits/burdens of those options * Likely scenarios comparing ongoing aggressive care with a transition to comfort measures only * Questions answered to the best of my ability * Palliative care contact information provided * Hospice philosophy and benefits . Assessment and Plan Disease Oriented Problem List: (1) Fracture of hip, left, closed (2) Atrial fibrillation (3) Dementia Symptom Scale: (1) Pain 0-10 Scale: Unable to quantify Pertinent Non-Medical Issues Psychosocial: Patient originally from [facility]. Has been in [place] for 18 years. for the past 62 years. 4 children. 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 Spiritual: No caodaism affiliation. Legal: Advance directives reported as completed. Ethical issues impacting care: No ethical issues identified. . Important Contacts Zoey Ba . Daughter Tara . . Prognosis Mr. Ba is an 82-year-old male with a medical history significant for dementia, atrial fibrillation, osteoarthritis and BPH. Patient presented to the ED on 03/20/18 for evaluation of left leg pain secondary to mechanical fall at home. Pelvis and femur x-ray revealed complete mid cervical left femoral neck fracture. Given severity of dementia and acute injury, patient at high risk for further decompensation and . Patient appears hospice appropriate in the setting of severe dementia with acute injury, life expectancy of days to weeks if illness run its natural course. . Code Status: No Code Plan * CODE STATUS: DNR/DNI. * HEALTHCARE DECISION-MAKING: Patient unable to participating medical decision making secondary to baseline dementia. Family reports that advance directives have been completed naming patient's Zoey Ba as healthcare surrogate decision maker. She has fully accepted this role and is supported by her daughter Tara. * GOALS OF CARE: Patient's Zoey acting as surrogate decision-maker has elected to transition patient to comfort-directed care with hospice in the setting of severe dementia, acute injury and known wishes as listed in patient' s living will. Patient likely to discharge to hospice care center for pain/ symptom management. * SYMPTOMS: = Pain: Acute secondary to left hip fracture. Leeds 5 mg/325 mg and 10 mg/325 mg available as needed. 2 doses of 5 mg has been given since admission. Patient appeared comfortable during my visit, no further recommendations at this time. * Ongoing emotional support and active listening provided. Anticipatory guidance provided. * Case discussed with bedside RN, charge nurse and hospice admission team. * Palliative care contact information has been provided to patient and family. * Palliative care will continue to follow up for further clarification of goals of care as patient's clinical course continues to evolve. . Time Spent Total Floor Time (mins): 47 (Total time to include review and summarization of available medical records, physical exam, goals of care conversation with family , case discussion with bedside nurse and hospice admissions team.) >50% Counseling/Coord of Care: Yes Thank you for the opportunity to participate in the care of Mr. Ba. Attestation To help prompt me to consider important information that might be impacting today's encounter and assessment, information from prior notes written by myself or my colleagues may have been "brought forward" into today's note. My signature on this note, however, is an attestation that I personally performed the exam, history, and/or decision-making noted today, and, unless otherwise indicated, the interactions with patient, family, and staff as well as the review of records all occurred today. I also attest that the listed assessment and stated plan reflect my best clinical judgment today based on the combination of historical information, prior notes, and today's exam/ interactions. When time spent is documented, it refers only to time spent today by the signer, or if indicated, combined time spent today by collaborating physician/nurse practitioner. Alona Cao Mar 21, 2018 13:51
--- NOTE | 2018-03-21 14:32 | HHI.PR ---
Subjective Remarks 82-year-old male with history of atrial fibrillation and dementia presenting with a left hip fracture Left femoral neck fracture No plan for surgery at this point Palliative care Hospice to be considered Atrial fibrillation Continue flecainide Possible pneumonia Continue azithromycin and Rocephin Dementia Continue Zyprexa and Namenda Dehydration Continue IV hydration DVT prophylaxis SCDs Discharge Planning Possible discharge on bed rest to home vs. SNF Possible hospice Objective Vital Signs Date Time Temp Pulse Resp B/P (MAP) Pulse Ox O2 Delivery O2 Flow Rate FiO2 03/21/18 12:00 97.5 104 20 158/88 (111) 96 03/21/18 08:00 97.3 101 19 108/84 (92) 96 03/21/18 04:00 97.9 95 18 116/74 (88) 96 03/21/18 00:00 97.5 118 18 151/88 (109) 96 03/20/18 20:00 97.5 82 16 114/71 (85) 94 03/20/18 16:30 03/20/18 15:25 92 18 130/88 (102) 98 Room Air I/O 03/20/18 03/20/18 03/20/18 03/21/18 03/21/18 03/21/18 07:00 15:00 23:00 07:00 15:00 23:00 Intake Total 360 ml Balance 360 ml Intake Oral 360 ml # Voids 1 2 Result Diagram: 03/21/18 0639 03/21/18 0639 Franklyn Tyson MD Mar 21, 2018 14:32
[2018-03-21] MEDS ORDERED: AZITHROMYCIN INJ 250 MG in SODIUM CHLOR 0.9% 250 ML INJ 250 ML IV SCH (15:00)
[2018-03-21] MEDS: cefTRIAXone INJ 1,000 MG in SODIUM CHLORIDE 0.9% INJ 100 ML IV SCH (15:08)
[2018-03-21 16:00] VITALS: BP 138/89; PULSE 106; RESP 22; TEMP 98; O2SAT 96
--- NOTE | 2018-03-21 16:13 | EKG ---
Date Performed: 03/20/2018 Time Performed: 11:31:07 PTAGE: 82 years EKG: ATRIAL FIBRILLATION WITH RAPID VENTRICULAR RESPONSE WITH ABERRANT CONDUCTION OR VENTRICULAR PREMATURE COMPLEXES POSSIBLE ANTERIOR MYOCARDIAL INFARCTION ABNORMAL ECG Compared to PREVIOUS TRACING , patient is now in atrial fibrillation with occasional PVCs. Previous E KG showed normal Sinus rhythm . PREVIOUS TRACIN06/01/2016 09.52 DOCTOR: Angelito Ag Interpretating Date/Time 03/21/2018 16:12:21
--- NOTE | 2018-03-21 18:56 | MB ---
cc: Ernesto Guerra MD, Todd A MD DATE: 03/21/2018 REASON FOR CONSULTATION: Left femoral neck fracture. HISTORY OF PRESENT ILLNESS: Bill is an 82-year-old male who has severe dementia. He has had dementia for approximately 17 years. His daughter and are at bedside. He lost his balance and fell. They describe a mechanical fall. He had immediate left hip pain. He was unable to stand or ambulate after the fall. He was in the Emergency Room where x-rays revealed a displaced left femoral neck fracture. The patient is awake, but confused. PAST MEDICAL HISTORY: Illnesses - Dementia, atrial fibrillation, arthritis, BPH. PAST SURGICAL HISTORY: Hernia repair, left knee replacement, cholecystectomy. ALLERGIES: CIPROFLOXACIN. MEDICATIONS: Please see EMR for complete list of inpatient medications. SOCIAL HISTORY: The patient has a history of 1 or 2 drinks a day. He quit smoking. FAMILY HISTORY: The patient has 1 daughter who is healthy and denies any medical problems. REVIEW OF SYSTEMS: Unobtainable secondary to dementia. IMAGING STUDIES: X-ray of the left hip are reviewed. X-ray revealed displaced left femoral neck fracture. LABORATORY DATA: The patient has a white blood cell count of 10.7, hematocrit of 43.2, platelet count of 268. INR 1.1. potassium of 3.9. PHYSICAL EXAMINATION: GENERAL: The patient is an 82-year-old male. He has dementia. He has significant confusion. He appears well-developed and well-nourished. VITAL SIGNS: Temperature 98.0, pulse 106, respirations 22, blood pressure 138/89, O2 saturation 96% on room air. HEENT: Head: The patient is normocephalic. Pupils are equal. NECK: Soft, nontender. The trachea is midline. ABDOMEN: Soft, nontender, nondistended. EXTREMITIES: Examination of bilateral upper extremities reveals no significant pain with shoulder, elbow and wrist motion. He has good capillary refill in his fingers. Radial pulses are palpable. Skin is intact to both hands. Examination of right leg reveals no pain with hip, knee or ankle motion. Skin is intact. Dorsalis pedis pulses palpable. Sensation intact. Examination of left leg reveals that it is shortened and externally rotated. He has pain with any hip motion. Thigh and calf compartments are soft. He has good cap refill in his foot. Dorsalis pedis pulses palpable. IMPRESSION: 1. Dementia. 2. Atrial fibrillation. 3. Displaced left femoral neck fracture. PLAN: Treatment options were discussed with the patient's daughter and his . At this point, they are leaning towards hospice care and comfort care. They state that his dementia is severe and that he has no quality of life currently. They do not feel that putting him through surgery would benefit his quality of life. At this point, I would recommend a palliative care or hospice consult. I explained that without surgery, the patient likely will be bedbound and not be able to stand or ambulate. He will have some pain when he mobilizes. If they change their mind and wish to go with surgery, it would be a left hip hemiarthroplasty. The risks of surgery were discussed with the family. All questions were answered. I will check back with them after they have talked this over with palliative care. All questions were answered. MD JORDI Blackwell/ , 06:10 PM , 06:55 PM
== END 2018-03-21 21:56 | disposition hospice, inpatient (51) | DRG 536 ==
LOC: NEPC 10:09 → NEDA 14:45 → N06A 16:35
PROVIDERS: ADMIT Hospitalist; ATTEND Hospitalist
DX: S72.032A Displaced midcervical fracture of left femur, initial encounter for closed fracture (principal); W19.XXXA Unspecified fall, initial encounter; Y92.009 Unspecified place in unspecified non-institutional (private) residence as the place of occurrence of the external cause; I48.91 Unspecified atrial fibrillation; F03.90 Unspecified dementia, unspecified severity, without behavioral disturbance, psychotic disturbance, mood disturbance, and anxiety; E86.0 Dehydration; H91.90 Unspecified hearing loss, unspecified ear; N40.0 Benign prostatic hyperplasia without lower urinary tract symptoms; R26.89 Other abnormalities of gait and mobility; R29.6 Repeated falls; Z66 Do not resuscitate; Z51.5 Encounter for palliative care; Z87.891 Personal history of nicotine dependence
CPT/HCPCS: 71045; 72170; 73552; 80048; 80053; 84484; 85025; 85610; 85730; 93005; J0456; J0696; J2060; J7030; J7050